=== PATIENT | male | born 1965 | race Caucasian/White ===

== ENCOUNTER 2018-03-06 23:56 | Emergency (ER) | payer OTHER ==
[~2018-03-06] VITALS: Ht 172.7 cm; Wt 99.8 kg
--- NOTE | ~2018-03-06 | EKG ---
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 : 1965 Requested By: Stormy Malin Order Number: [id number] MD: Ravi Ybarra Measurements Intervals [place] Rate: 101 P: 54 [place]: 176 QRS: 37 QRSD: 112 T: 225 QT: 367 QTc: 476 Interpretive Statements Sinus tachycardia Probable LVH with secondary repol abnrm Compared to ECG 05/16/2016 06:52:30 Sinus rhythm no longer present Intraventricular conduction delay no longer present Electronically Signed On 03-07-2018 12:13:38 CDT by Ravi Ybarra [email or web address] <ELECTRONICALLY SIGNED> By: Ravi Ybarra MD 03/07/18 1213 0027 0027 Ravi Ybarra MD /JOSE
[~2018-03-06 23:56] MED LIST: COREG3.125 MG PO; COZAAR 25 MG TA25 M1 PO; DEMADEX20 MG PO; INSPRA25 MG PO; KLOR-CON 1010 MEQ PO
[2018-03-07 00:51] LABS: HEMATOCRIT 44.9 % (42.0-52.0); MCH 29.6 pg (26.0-34.0); MCHC 33.3 g/dL (28.0-37.0); MCV 88.9 fL (80.0-100.0); PLATELET COUNT 244 thou/uL (150-400); RBC 5.05 mil/uL (4.50-6.00); RDW 14.2 % (10.5-14.5); WBC 8.7 thou/uL (4.0-11.0)
[2018-03-07 01:01] LABS: ANION GAP 10 mmol/L (7-16); BUN 22 mg/dL (7-18); CALCIUM 9.4 mg/dL (8.5-10.1); CHLORIDE 99 mmol/L (98-107); CO2 27 mmol/L (21-32); CREATININE 0.9 mg/dL (0.7-1.3); GLUCOSE 109 mg/dL (74-106); POTASSIUM 4.6 mmol/L (3.5-5.1); SODIUM 136 mmol/L (136-145)
[2018-03-07 01:10] LABS: TROPONIN-I < 0.04 ng/mL (<0.06)
[2018-03-07 01:16] LABS: ABSOLUTE NEUTROPHILS 3.4 thou/uL (1.4-8.2); ATYPICAL LYMPHS 3 %
[2018-03-07] MEDS ORDERED: ZPAK PO (02:06)
[2018-03-07] MEDS ORDERED: LASIX 20 MG TAB20 MG PO (02:07)
== END 2018-03-07 02:18 | disposition home or self-care (01) ==
LOC: ER 23:56
PROVIDERS: Emergency Medicine
DX: R06.00 Dyspnea, unspecified (principal); J44.9 Chronic obstructive pulmonary disease, unspecified; I10 Essential (primary) hypertension; F17.210 Nicotine dependence, cigarettes, uncomplicated

== ENCOUNTER 2019-04-04 15:03 | Inpatient (IN) | payer OTHER ==
[~2019-04-04] VITALS: Ht 177.8 cm; Wt 106.1 kg
[2019-04-04] VITALS (15 sets, daily range): BP systolic 101–135; BP diastolic 49–94
[~2019-04-04 15:03] MED LIST changes: +HYDROCODONE-AP1 EAC6 PO; +LASIX 20 MG TAB20 MG PO; +SENNA8.6 MG PO; +ZPAK PO
[2019-04-04] MEDS ORDERED: COZAAR 25 MG TA25 M1 PO (15:36)
[2019-04-04] MEDS ORDERED: KLOR-CON 1010 MEQ PO (15:37)
[2019-04-04] MEDS ORDERED: DEMADEX10 MG PO (15:38)
[2019-04-04 15:40] LABS: HEMATOCRIT 40.1 % (42.0-52.0); HEMOGLOBIN 12.8 gm/dL (14.0-18.0); MCH 29.7 pg (26.0-34.0); MCV 92.8 fL (80.0-100.0); PLATELET COUNT 255 thou/uL (150-400); RBC 4.33 mil/uL (4.50-6.00); RDW 17.4 % (10.5-14.5)
[2019-04-04 15:40] LABS: URINE BILIRUBIN NEGATIVE (Negative); URINE BLOOD NEGATIVE (Negative); URINE CLARITY CLEAR; URINE COLOR YELLOW; URINE GLUCOSE-RANDOM* TRACE (Negative); URINE KETONES NEGATIVE (Negative); URINE LEUKOCYTES-REFLEX NEGATIVE (Negative); URINE NITRITE-REFLEX NEGATIVE (Negative); URINE PROTEIN (DIPSTICK) 1+ (Negative); URINE SPECIFIC GRAVITY >= 1.030 (1.005-1.035)
[2019-04-04 15:47] LABS: CALCIUM 8.5 mg/dL (8.5-10.1); CREATININE 0.8 mg/dL (0.7-1.3); POTASSIUM 4.2 mmol/L (3.5-5.1)
[2019-04-04 15:53] LABS: ALBUMIN 3.1 g/dL (3.4-5.0); TOTAL PROTEIN 7.2 g/dL (6.4-8.2)
[2019-04-04 15:57] LABS: INR 1.2; PROTIME 12.5 Seconds (9.3-11.4)
[2019-04-04 15:58] LABS: SQUAMOUS 0-3 Few /LPF (0-3)
[2019-04-04 15:59] LABS: BACTERIA-REFLEX None Seen /HPF (None Seen); COARSE GRANULAR CASTS 0-3 Few /LPF (None Seen); CRYSTALS None Seen /LPF (None Seen); HYALINE CASTS 0-3 Few /LPF (None Seen); MUCUS 0-3 Light strn/LPF (None Seen); URINE RBC None Seen /HPF (0-2); URINE WBC-REFLEX None Seen /HPF (0-5)
[2019-04-04 17:41] LABS: AMP/METHAMP POSITIVE (Negative); BARBITURATES Negative (Negative); BENZODIAZEPINES Negative (Negative); COCAINE Negative (Negative); METHADONE Negative (Negative); OPIATES Negative (Negative); PCP Negative (Negative)
[2019-04-04 17:49] LABS: BE(vivo) 0.1 mmol/L (-2 to +3); HCO3 25.4 mmol/L (22.0-26.0); PCO2 43.8 mmHg (35.0-45.0); PO2 110.9 mmHg (80.0-100.0); pH 7.382 (7.360-7.450)
[2019-04-05] VITALS (39 sets, daily range): BP systolic 102–137; BP diastolic 57–87
[2019-04-05 04:59] LABS: INR 1.2; PROTIME 12.1 Seconds (9.3-11.4)
[2019-04-05 05:00] LABS: ALBUMIN 3.3 g/dL (3.4-5.0); CALCIUM 8.3 mg/dL (8.5-10.1); CREATININE 0.8 mg/dL (0.7-1.3); POTASSIUM 3.6 mmol/L (3.5-5.1); TOTAL PROTEIN 7.4 g/dL (6.4-8.2)
--- NOTE | 2019-04-05 18:02 | EKG ---
[address] [address] ELECTROCARDIOGRAM REPORT Name: SHOSHANAFREDI Lanier Room #: 245-P ADM IN M.R.#: [id number] ������������������ Admission: 04/04/19 ������������������ Attend Phys: Arnoldo Crews MD Discharge: ������������������ Date of : 65 Report #: [id number] ����������������������������������������������������������������� [id number] THIS REPORT FOR: //name// [facility] ED Test Date: 2019-04-04 Test Time: 17:28:02 Pat Name: FREDI ANNA Department: Room: 245 Gender: M Mft: roslyn : 1965 Requested By: Jenna Weber Order Number: [id number] MD: Ravi Ybarra Measurements Intervals [place] Rate: 101 P: 71 [place]: 177 QRS: 24 QRSD: 128 T: 199 QT: 357 QTc: 463 Interpretive Statements Sinus tachycardia Ventricular premature complex Probable left atrial enlargement Nonspecific intraventricular conduction delay Borderline repolarization abnormality Compared to ECG 03/17/2018 23:52:53 Ventricular premature complex(es) now present Intraventricular conduction delay now present ST (T wave) deviation no longer present Electronically Signed On 04-05-2019 18:01:42 CDT by Ravi Ybarra [email or web address] ��������������������������������������������� <ELECTRONICALLY SIGNED> ���������������������������������������� By: Ravi Ybarra MD ��������������������������������������������� 04/05/19 1801 1728 1728 Ravi Ybarra MD /EPI
[2019-04-06] VITALS (8 sets, daily range): BP systolic 87–113; BP diastolic 59–77
[2019-04-06 06:02] LABS: HEMATOCRIT 41.6 % (42.0-52.0); HEMOGLOBIN 13.4 gm/dL (14.0-18.0); MCH 30.2 pg (26.0-34.0); MCHC 32.2 g/dL (28.0-37.0); MCV 93.8 fL (80.0-100.0); RBC 4.43 mil/uL (4.50-6.00); RDW 17.7 % (10.5-14.5); WBC 12.2 thou/uL (4.0-11.0)
[2019-04-06 06:17] LABS: CALCIUM 8.8 mg/dL (8.5-10.1); CREATININE 0.9 mg/dL (0.7-1.3); POTASSIUM 4.6 mmol/L (3.5-5.1)
[2019-04-06 06:19] LABS: ALBUMIN 3.1 g/dL (3.4-5.0); DIRECT BILIRUBIN 0.2 mg/dL (<0.1-0.3); TOTAL BILIRUBIN 0.7 mg/dL (<0.1-1.0); TOTAL PROTEIN 7.6 g/dL (6.4-8.2)
--- NOTE | 2019-04-06 09:21 | EKG ---
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 : 1965 Requested By: Zane Chand Order Number: [id number] MD: Zane Chand Measurements Intervals [place] Rate: 103 P: 71 [place]: 179 QRS: 46 QRSD: 122 T: 259 QT: 360 QTc: 471 Interpretive Statements Sinus tachycardia Left atrial enlargement Nonspecific intraventricular conduction delay Nonspecific repol abnormality, diffuse leads Compared to ECG 04/04/2019 17:28:02 Ventricular premature complex(es) no longer present Electronically Signed On 04-06-2019 9:20:54 CDT by Zane Chand [email or web address] ��������������������������������������������� <ELECTRONICALLY SIGNED> ���������������������������������������� By: Zane Chand MD, [facility] ��������������������������������������������� 04/06/19 0920 0809 0809 Zane Chand MD, [facility] /EPI
[2019-04-07 05:20] VITALS: BP 117/74
[2019-04-07 05:58] LABS: CALCIUM 8.7 mg/dL (8.5-10.1); CREATININE 0.7 mg/dL (0.7-1.3); POTASSIUM 4.9 mmol/L (3.5-5.1)
[2019-04-07 07:56] VITALS: BP 121/94
[2019-04-07 11:48] VITALS: BP 108/56
[2019-04-07 12:11] VITALS: BP 121/94
[2019-04-07 12:14] VITALS: BP 121/94
[2019-04-07] MEDS ORDERED: DEMADEX 2020 MG/1 TA PO (13:11)
--- NOTE | 2019-04-12 13:28 | 2DMMODE ---
[facility] [address] [place] [address] 2 D/M-MODE ECHOCARDIOGRAM Name: SHOSHANAFREDI J Room #: 356-P [facility]#: [id number] ������������� Admission: 04/04/19 ������������� Attend Phys: Arnoldo Crews MD Discharge: ��� 04/07/19 ������������� ��� Date of : 65 Date of Service: 04/05/19 1244 �� Report #: [id number] �������� ��������������������������������������������[id number] THIS REPORT FOR: //name// APPROVED REPORT Study performed: 04/05/2019 10:54:40 EXAM: Comprehensive 2D, Doppler, and color-flow Echocardiogram Room #: [facility] Status: routine BSA: 2.25 HR: 91 bpm BP: 119/67 mmHg Indications Congestive Heart Failure COPD Cardiomyopathy ICD 2D Dimensions RVDd: 44.66 mm IVSd: 8.75 (7-11mm) LVOT Diam: 21.57 (18-24mm) LVDd: 68.46 mm PWd: 8.18 (7-11mm) Ascending Ao: 30.04 (22-36mm) LVDs: 65.81 (25-40mm) Aortic Root: 31.16 mm IVC: 24.00 mm Volumes Left Atrial Volume (Systole) Single Plane 4CH: 87.66 mL Single Plane 2CH: 113.06 mL LA ESV Index: 47.00 mL/m2 Aortic Valve AoV Peak Maurice.: 0.86 m/s AO Peak Gr.: 2.98 mmHg LVOT Max P.23 mmHg LVOT Max V: 0.75 m/s SEJAL Vmax: 3.16 cm2 Mitral Valve E/A Ratio: 5.4 MV Decel. Time: 148.83 ms MV E Max Maurice.: 1.18 m/s MV A Maurice.: 0.22 m/s MV PHT: 43.16 ms IVRT: 73.82 ms [facility] [address] [place] [address] 2 D/M-MODE ECHOCARDIOGRAM Name: FREDI ANNA Room #: 356-P [facility]..#: [id number] ������������� Admission: 04/04/19 ������������� Attend Phys: Arnoldo Crews MD Discharge: ��� 04/07/19 ������������� ��� Date of : 65 Date of Service: 04/05/19 1244 �� Report #: [id number] �������� ��������������������������������������������[id number] Pulmonary Valve PV Peak Maurice.: 0.65 m/s PV Peak Gr.: 1.70 mmHg Pulmonary Vein P Vein S: 0.22 m/s P Vein D: 0.58 m/s P Vein S/D Ratio: 0.38 Tricuspid Valve TR Peak Maurice.: 2.77 m/s RAP Estimate: 15.00 mmHg TR Peak Gr.: 30.72 mmHg PA Pressure: 46.00 mmHg Left Ventricle Left ventricle is moderately dilated. There is global hypokinesis of the left ventricle. There is normal left ventricular wall thickness. Left ventricular ejection fraction is severely decreased. LVEF is 10-15%. Transmitral Doppler flow pattern suggests restrictive physiology. Right Ventricle Right ventricle is moderately dilated. Right ventricle is moderately hypokinetic. Atria Left atrium is severely dilated. Right atrium is severely dilated. Aortic Valve The aortic valve is normal in structure. No aortic regurgitation is present. There is no aortic valvular stenosis. Mitral Valve The mitral valve is normal in structure. Mild to moderate mitral regurgitation. No evidence of mitral valve stenosis. Tricuspid Valve The tricuspid valve is normal in structure. Moderate to severe tricuspid regurgitation. PAP is estimated at 45 mmHg. Pulmonic Valve The pulmonary valve is normal in structure. There is no pulmonic valvular regurgitation. [employer] [address] [address] 2 D/M-MODE ECHOCARDIOGRAM Name: FREDI ANNA Room #: 356-P [facility] IN ..#: [id number] ������������� Admission: 04/04/19 ������������� Attend Phys: Arnoldo Crews MD Discharge: ��� 04/07/19 ������������� ��� Date of : 65 Date of Service: 04/05/19 1244 �� Report #: [id number] �������� ��������������������������������������������[id number] The aortic root is normal in size. The ascending aorta is normal in size. IVC is dilated and collapses <50% with inspiration. Pericardium There is no pericardial effusion. <Conclusion> Left ventricular ejection fraction is severely decreased. There is global hypokinesis of the left ventricle. LVEF is 10-15%. Both atria are dilated. The aortic valve is normal in structure. No aortic regurgitation or stenosis. The mitral valve is normal in structure. Mild to moderate mitral regurgitation. Moderate to severe tricuspid regurgitation. Pulmonary artery pressure estimated at 45 mmHg. There is no pericardial effusion. ��������������������������������������������� <ELECTRONICALLY SIGNED> ���������������������������������������� By: Zane Chand MD, [facility] ��������������������������������������������� 04/05/19 1244 1244 1244 Zane Chand MD, FAC /INF
== END 2019-04-07 16:35 | disposition home health service (06) | DRG 291 ==
LOC: ER 15:03 → EROBS 17:58 → ICU 17:58 → 3W 21:10 → ICU 21:12 → 3W 04-05 18:48 → ENTRNSPT 04-07 15:51 → 3W 04-07 16:35
PROVIDERS: Internal Medicine; Nurse Practitioner; Nurse Practitioner Family; ADMIT Hospitalist
PROC: 5A09357 Assistance with Respiratory Ventilation, Less than 24 Consecutive Hours, Continuous Positive Airway Pressure (ICD-10-PCS; principal; 2019-04-05)
PROC: 5A09357 Assistance with Respiratory Ventilation, Less than 24 Consecutive Hours, Continuous Positive Airway Pressure (ICD-10-PCS; 2019-04-06)
PROC: 5A09357 Assistance with Respiratory Ventilation, Less than 24 Consecutive Hours, Continuous Positive Airway Pressure (ICD-10-PCS; 2019-04-07)
DX: I11.0 Hypertensive heart disease with heart failure (principal); J18.9 Pneumonia, unspecified organism; E87.1 Hypo-osmolality and hyponatremia; R18.8 Other ascites; F15.921 Other stimulant use, unspecified with intoxication delirium; J44.0 Chronic obstructive pulmonary disease with (acute) lower respiratory infection; K52.9 Noninfective gastroenteritis and colitis, unspecified; I50.23 Acute on chronic systolic (congestive) heart failure; I42.8 Other cardiomyopathies; F17.210 Nicotine dependence, cigarettes, uncomplicated; R14.0 Abdominal distension (gaseous); F19.90 Other psychoactive substance use, unspecified, uncomplicated; K59.00 Constipation, unspecified; D72.829 Elevated white blood cell count, unspecified; R00.0 Tachycardia, unspecified; Z95.0 Presence of cardiac pacemaker; Z82.49 Family history of ischemic heart disease and other diseases of the circulatory system; Z83.6 Family history of other diseases of the respiratory system; Z80.9 Family history of malignant neoplasm, unspecified; Z71.6 Tobacco abuse counseling; Z79.899 Other long term (current) drug therapy
CPT/HCPCS: 10078; 10779; 10879

== ENCOUNTER 2020-06-15 15:06 | Outpatient (CLI) | payer OTHER ==
[~2020-06-15 15:06] MED LIST changes: +DEMADEX 2020 MG/1 TA PO; +DEMADEX10 MG PO
--- NOTE | 2020-06-23 22:20 | SLE ---
[facility] [place] [address] [place] [address] POLYSOMNOGRAPHY STUDY Name: FREDI ANNA Room #: [facility]#: [id number] Admission: 06/15/20 Attend Phys: Micah Suarez MD Discharge: Date of : 65 Report #: [id number] THIS REPORT FOR: //name// CC: Micah Chand DATE OF SERVICE: 06/20/2020 HOME SLEEP STUDY ATTENDING PHYSICIAN: Dr. Zane Chand. The patient is a 55-year-old who weighs 254 pounds with a BMI of 36.4. The patient's [place] score was 14. The patient underwent home sleep study performed by [facility]. Total recording time was 364 minutes. During the night study, the patient had 10 obstructive apneas, no mixed or central apneas and 124 hypopneas. The patient's AHI was 25.8 per hour. Supine AHI of 23 per hour. Nocturnal oximetry study revealed an average oxygen saturation of 89% with the lowest of 74%. More than 200 minutes were spent in oxygen saturation of less than 90%. Mean heart rate 104 beats per minute with a maximum of 118 beats per minute. IMPRESSION: 1. Moderate obstructive sleep apnea at an AHI of 25.8 per hour. 2. Moderate nocturnal hypoxia secondary to obstructive sleep apnea. RECOMMENDATIONS: 1. The patient would benefit from treatment of sleep apnea with CPAP. This can be done as an in-lab CPAP titration study versus home auto-titration study. 2. Once the patient is optimally treated with CPAP, then follow up in 4-6 weeks to assess compliance and to document clinical improvement. 3. Weight loss is strongly advised. 4. Avoid [employer] depressants. 5. Cautioned regarding driving until symptoms of sleep apnea resolve with the use of CPAP. <ELECTRONICALLY SIGNED> By: Micah Suarez MD 06/23/20 2220 1626 1652 Micah Suarez MD /nt
== END 2020-07-15 23:59 ==
LOC: SLEEPLAB → EDSTATUS 15:18 → SLEEPLAB 07-15 08:53
PROVIDERS: ATTEND Internal Medicine Critical Care Medicine
DX: G47.33 Obstructive sleep apnea (adult) (pediatric) (principal); G47.34 Idiopathic sleep related nonobstructive alveolar hypoventilation; I10 Essential (primary) hypertension; R53.83 Other fatigue

== ENCOUNTER → 2020-06-29 | Outpatient (CLI) | payer OTHER | LOC: SJCVCIMAG 09:36 | PROVIDERS: ATTEND Internal Medicine | DX: I51.7 Cardiomegaly (principal); I42.9 Cardiomyopathy, unspecified; J43.9 Emphysema, unspecified; G47.33 Obstructive sleep apnea (adult) (pediatric) ==

== ENCOUNTER → 2020-07-21 | Outpatient (CLI) | payer OTHER | LOC: SJCVC 13:11 | PROVIDERS: ATTEND Internal Medicine | DX: I42.0 Dilated cardiomyopathy (principal); I11.0 Hypertensive heart disease with heart failure; I50.9 Heart failure, unspecified; E78.5 Hyperlipidemia, unspecified; J43.9 Emphysema, unspecified; G47.33 Obstructive sleep apnea (adult) (pediatric); F17.200 Nicotine dependence, unspecified, uncomplicated; Z79.899 Other long term (current) drug therapy ==